=== PATIENT | male | born 1950 | race Caucasian/White ===

== ENCOUNTER → 2020-08-07 | Outpatient (CLI) | payer MEDICARE, OTHER ==
[~2020-08-07] VITALS: Ht 175.3 cm; Wt 93.0 kg
[~2020-08-07] MED LIST: ALLOPURINOL100 MG PO; AMLODIPINE BESY10 MG PO; ASPIR 8181 MG PO; BENADRYL 25MG C25 MG PO; CALCIUM ACETAT667 M1 PO; CARDURA 2MG TAB2 MG PO; CIPROFLOXACIN500 M1 PO; CLINDAMYCIN HC300 MG PO; ELIQUIS5 MG PO; FLOXIN 0.3% OTIC5 ML AS; FUROSEMIDE20 MG PO; GLIPIZIDE5 MG PO; GLUCOTROL 10 MG10 MG PO; HUMALOG 10100 UNITS/ SC; HYDRALAZINE HCL10 MG PO; HYDRALAZINE HCL25 MG PO; ISOSORBIDE MONO60 MG PO; KEFLEX CAP 500500 MG PO; KETOROLAC TROMETHAMI; LANTUS SOL100 UNIT/1 SQ; LEVOTHYROXINE50 MCG PO; LEVOTHYROXINE88 MCG PO; LOPRESSOR 25 MG25 MG PO; PIOGLITAZONE HC15 MG PO; PLAVIX75 MG PO; POVIDONE IODINE TOP; PRAVASTATIN SOD20 MG PO; PRAVASTATIN SOD80 MG PO; PREDNISOLONE ACE5 ML OP; PREDNISONE10 MG PO; PROTONIX 40 MG40 M1 PO; SODIUM BICARBO650 M1 PO
== END ==
LOC: NM 09:55
PROVIDERS: Podiatrist Foot & Ankle Surgery
DX: E11.69 Type 2 diabetes mellitus with other specified complication (principal); M86.172 Other acute osteomyelitis, left ankle and foot; Z91.041 Radiographic dye allergy status; Z79.4 Long term (current) use of insulin; Z79.899 Other long term (current) drug therapy
CPT/HCPCS: 36415; 78315; 80048; 96365; 96366; A9503; J3370; J7060

== ENCOUNTER → 2020-08-15 | Day surgery (SDC) | payer MEDICARE, OTHER | END | disposition home or self-care (01) | LOC: OR 06:56 | DX: E11.69 Type 2 diabetes mellitus with other specified complication (principal); M86.8X7 Other osteomyelitis, ankle and foot; I12.9 Hypertensive chronic kidney disease with stage 1 through stage 4 chronic kidney disease, or unspecified chronic kidney disease; E11.22 Type 2 diabetes mellitus with diabetic chronic kidney disease; N18.9 Chronic kidney disease, unspecified; E11.51 Type 2 diabetes mellitus with diabetic peripheral angiopathy without gangrene; E11.621 Type 2 diabetes mellitus with foot ulcer; L97.519 Non-pressure chronic ulcer of other part of right foot with unspecified severity; I25.10 Atherosclerotic heart disease of native coronary artery without angina pectoris; E78.00 Pure hypercholesterolemia, unspecified; Z87.891 Personal history of nicotine dependence; Z91.041 Radiographic dye allergy status; Z88.8 Allergy status to other drugs, medicaments and biological substances; Z79.82 Long term (current) use of aspirin; Z79.4 Long term (current) use of insulin; Z79.2 Long term (current) use of antibiotics; Z79.02 Long term (current) use of antithrombotics/antiplatelets; Z79.899 Other long term (current) drug therapy | CPT/HCPCS: 71045; 77001; 82962; C1751; C1769; C1788; J0690; J1100; J1642; J2001; J2405; J2704; J3010; J7030; J7040; J7120 ==

== ENCOUNTER 2020-12-09 15:57 | Inpatient (IN) | payer MEDICARE, OTHER ==
[~2020-12-09] VITALS: Ht 175.3 cm; Wt 90.0 kg
[~2020-12-09 15:57] MED LIST changes: -CALCIUM ACETAT667 M1 PO; -ELIQUIS5 MG PO; -GLUCOTROL 10 MG10 MG PO; -HUMALOG 10100 UNITS/ SC; -HYDRALAZINE HCL10 MG PO; -HYDRALAZINE HCL25 MG PO; -ISOSORBIDE MONO60 MG PO; -LEVOTHYROXINE88 MCG PO; -LOPRESSOR 25 MG25 MG PO; -POVIDONE IODINE TOP; -PRAVASTATIN SOD20 MG PO; -PROTONIX 40 MG40 M1 PO; -SODIUM BICARBO650 M1 PO
[2020-12-09 16:57] LABS: RED BLOOD COUNT 3.04 M/UL (4.20-5.50); WHITE BLOOD COUNT 5.7 K/UL (4.5-11.0)
[2020-12-09] MEDS ORDERED: HYDRALAZINE HCL10 MG PO (23:09)
[2020-12-09] MEDS ORDERED: GLUCOTROL 10 MG10 MG PO (23:09)
[2020-12-09] MEDS ORDERED: LEVOTHYROXINE88 MCG PO (23:10)
[2020-12-09] MEDS ORDERED: ELIQUIS5 MG PO (23:11)
[2020-12-10 02:49] LABS: HEMOGLOBIN 9.2 gm/dl (14.0-17.5); RED BLOOD COUNT 3.13 M/UL (4.20-5.50); WHITE BLOOD COUNT 6.7 K/UL (4.5-11.0)
[2020-12-10 03:19] LABS: BUN/CREATININE RATIO 14 (0-10)
[2020-12-12 05:01] LABS: HEMOGLOBIN 10.7 gm/dl (14.0-17.5); WHITE BLOOD COUNT 5.2 K/UL (4.5-11.0)
[2020-12-12 05:05] LABS: RED BLOOD COUNT 3.69 M/UL (4.20-5.50)
--- NOTE | 2020-12-12 08:04 | NUR ---
LAB NOTIFIED NURSE OF CRITICAL POTASSIUM 7.7. HAS BEEN NOTIFIED. SARAH BETH
--- NOTE | 2020-12-12 17:41 | NUR ---
NOTIFIED OF BLOOD GLUCOSE 451 AT 1630. MD ORDER HUMALOG 75/25 50 UNITS AND TO USE THE SLIDING SCALE.
[2020-12-13 02:53] LABS: HEMOGLOBIN 8.6 gm/dl (14.0-17.5); RED BLOOD COUNT 2.99 M/UL (4.20-5.50); WHITE BLOOD COUNT 6.8 K/UL (4.5-11.0)
[2020-12-13 08:15] LABS: COMPLEMENT C3, SERUM 158 mg/dL (82-167); COMPLEMENT C4, SERUM 39 mg/dL (12-38)
--- NOTE | 2020-12-14 12:33 | NUR ---
NOTIFIED MD OF ELEVATED BP 173/66. AWAITING MD ORDERS. WCTM
--- NOTE | 2020-12-14 17:46 | NUR ---
MD NOTIFIED OF SBP >160. MD ORDERED NO NEW MEDS AND TO CONTINUE TO [facility].
[2020-12-16 04:01] LABS: RED BLOOD COUNT 3.7 M/UL (4.20-5.50); WHITE BLOOD COUNT 7.1 K/UL (4.5-11.0)
[2020-12-16 04:02] LABS: HEMOGLOBIN 10.7 gm/dl (14.0-17.5)
[2020-12-18 04:07] LABS: HEMOGLOBIN 9.5 gm/dl (14.0-17.5)
[2020-12-18 04:27] LABS: RED BLOOD COUNT 3.32 M/UL (4.20-5.50)
[2020-12-20 02:56] LABS: HEMOGLOBIN 9.7 gm/dl (14.0-17.5); RED BLOOD COUNT 3.35 M/UL (4.20-5.50); WHITE BLOOD COUNT 6.2 K/UL (4.5-11.0)
--- NOTE | 2020-12-20 15:36 | NUR ---
WOUND CARE PERFORMED PER MD ORDER, PATIENT TOLERATED WELL.
--- NOTE | 2020-12-21 15:50 | NUR ---
wound care performed per md order. patient tolerated well.
[2020-12-22] MEDS ORDERED: HYDRALAZINE HCL25 MG PO (11:50)
[2020-12-22] MEDS ORDERED: PRAVASTATIN SOD20 MG PO (11:50)
[2020-12-22] MEDS ORDERED: POVIDONE IODINE TOP (11:50)
[2020-12-22] MEDS ORDERED: SODIUM BICARBO650 M1 PO (11:50)
[2020-12-22] MEDS ORDERED: LEVOTHYROXINE88 MCG PO (11:50)
[2020-12-22] MEDS ORDERED: LOPRESSOR 25 MG25 MG PO (11:50)
[2020-12-22] MEDS ORDERED: PROTONIX 40 MG40 M1 PO (11:50)
[2020-12-22] MEDS ORDERED: ISOSORBIDE MONO60 MG PO (11:50)
[2020-12-22] MEDS ORDERED: HUMALOG 10100 UNITS/ SC (11:50)
[2020-12-22] MEDS ORDERED: CALCIUM ACETAT667 M1 PO (11:50)
[2020-12-22 12:26] LABS: HEMOGLOBIN 10.1 gm/dl (14.0-17.5); RED BLOOD COUNT 3.52 M/UL (4.20-5.50); WHITE BLOOD COUNT 5.9 K/UL (4.5-11.0)
[2020-12-23 04:38] LABS: HEMOGLOBIN 9.5 gm/dl (14.0-17.5); RED BLOOD COUNT 3.37 M/UL (4.20-5.50); WHITE BLOOD COUNT 5.6 K/UL (4.5-11.0)
[2020-12-24 06:11] LABS: HEMOGLOBIN 9.7 gm/dl (14.0-17.5); RED BLOOD COUNT 3.4 M/UL (4.20-5.50)
--- NOTE | 2020-12-29 17:39 | NUR ---
patients sugar was 65 at 1650, i offered the patient juice or a snack and he refused, i told him his sugar was low and needed medication D50 to bring it back up, he refused all treatment. at 1740 patient agreed to drink a juice, wctm
[2020-12-30 05:10] LABS: HEMOGLOBIN 8.2 gm/dl (14.0-17.5); RED BLOOD COUNT 2.96 M/UL (4.20-5.50); WHITE BLOOD COUNT 4.4 K/UL (4.5-11.0)
[2021-01-03 04:15] LABS: HEMOGLOBIN 7.8 gm/dl (14.0-17.5); RED BLOOD COUNT 2.77 M/UL (4.20-5.50); WHITE BLOOD COUNT 5.3 K/UL (4.5-11.0)
[2021-01-04 03:22] LABS: HEMOGLOBIN 8.6 gm/dl (14.0-17.5); RED BLOOD COUNT 3.02 M/UL (4.20-5.50); WHITE BLOOD COUNT 9.4 K/UL (4.5-11.0)
--- NOTE | 2021-01-04 04:56 | NUR ---
01/04/2021 @ 02:20 - Patient O2 65%, bp 96/52, unable to obtain oral temp. rectally 95.7. Bowel movement and void in bed, blood sugar 239. Applied o2 @ 2L, O2 increased to mid 80's. Titrated O2 to 5L, no change in O2 sat. Dr Ray notified, obtained order for stat cbc, cmp, ekg, cardiacs (repeat in 3 hours), chest xray, ABG, blood cultures x2, vancomycin pharmacy to dose, and lactic acid. Pt difficult to arouse. 01/04/2021 @ 03:30 - respiratory therapy in room. venti mask applied at 50%. o2 sat staying above 90% at this time. MD called RN for eliquis 5mg x1 dose now and BID. and lasix 40mg if systolic bp >100 or lasix 60mg if systolic >120. bp currently 97/50. MD notified of lab values and bp. obtained order for pcu tx, 15 kayexalate, 10 units IV insulin, 1 amp of d50, NS 500 bolus, and 1g calcium gluconate. Also to repeat lactic and potassium labs in 4 hours.
--- NOTE | 2021-01-04 05:08 | NUR ---
01/04/2021 @ 04:55 - Report called to Nasim SOTO on PCU.
--- NOTE | 2021-01-04 05:08 | NUR ---
01/04/2021 @ 05:05 - pt moved to [facility]
--- NOTE | 2021-01-04 15:44 | NUR ---
01/04/21 1130 PATIENT O2 SATURATION 88% ON 15L HFNC AND UNABLE TO MAINTAIN SATURATION. DR. SY NOTIFIED AND ORDERS WERE RECEIVED TO OBTAIN ABG.
--- NOTE | 2021-01-04 15:45 | NUR ---
01/04/21 1434 NOTIFIED THAT PATIENT O2 SATURATION 85% ON 100% AIRVO, ORDERS OBTAINED TO PLACE PATIENT ON BIPAP
--- NOTE | 2021-01-05 00:27 | NUR ---
1999 ATTEMPTED TO TRY PATIENT BACK ON HIS HIGH FLOW O2 THIS FAILED HE QUICKLY DROPS HIS SAT. 2099 TRIED PATIENT ON THE AIRVO TO SEE IF HE COULD TOLORATE SO HE COULD EAT FAILD HE DROPS INTO LOW 80'S. HE IS PLACED BACK ON THE BIPAP 0000 ON BIPAP HE CONTINUES TO DROP TO MID 80'S MD IS CALLED AND NEW BIPAP SETTING ARE GIVEN. IMMEDIATELY PATEINTS SATS ELEVATE TO 90'S
--- NOTE | 2021-01-05 01:31 | NUR ---
0130 patient has removed is mask severl times this shift, sats quickly drop into 70's at this time his sat in mid 80's aware
[2021-01-05 03:45] LABS: HEMOGLOBIN 7.7 gm/dl (14.0-17.5); RED BLOOD COUNT 2.72 M/UL (4.20-5.50); WHITE BLOOD COUNT 8.6 K/UL (4.5-11.0)
--- NOTE | 2021-01-05 04:51 | NUR ---
FAMILY IS CALLED TO INFORM THEM OF CHANGES IN PATIENTS CONDITION. [id number] FAMILY AT BEDSIDE
== END 2021-01-05 08:00 | disposition expired | DRG 239 ==
LOC: ER1 15:57 → MED SURG 4 22:13 → CDU 22:13 → MED SURG 4 12-10 00:45 → ZEROF 12-17 14:59 → PROG CARE 01-04 05:08
PROVIDERS: Internal Medicine; Internal Medicine Infectious Disease; Internal Medicine Nephrology; Physician Assistant; ADMIT Internal Medicine
PROC: 0Y6M0ZF Detachment at Right Foot, Partial 5th Ray, Open Approach (ICD-10-PCS; principal; 2020-12-09)
PROC: 0Y6X0Z0 Detachment at Right 5th Toe, Complete, Open Approach (ICD-10-PCS; principal; 2020-12-09)
PROC: 0JBP0ZZ Excision of Left Lower Leg Subcutaneous Tissue and Fascia, Open Approach (ICD-10-PCS; 2020-12-09)
PROC: 0HRMXK3 Replacement of Right Foot Skin with Nonautologous Tissue Substitute, Full Thickness, External Approach (ICD-10-PCS; 2020-12-09)
PROC: 5A09457 Assistance with Respiratory Ventilation, 24-96 Consecutive Hours, Continuous Positive Airway Pressure (ICD-10-PCS; 2020-12-09)
PROC: 3E033XZ Introduction of Vasopressor into Peripheral Vein, Percutaneous Approach (ICD-10-PCS; 2021-01-03)
PROC: B24BZZZ Ultrasonography of Heart with Aorta (ICD-10-PCS; 2021-01-04)
DX: E11.52 Type 2 diabetes mellitus with diabetic peripheral angiopathy with gangrene (principal); J18.9 Pneumonia, unspecified organism; N17.0 Acute kidney failure with tubular necrosis; A41.52 Sepsis due to Pseudomonas; A41.81 Sepsis due to Enterococcus; M86.8X7 Other osteomyelitis, ankle and foot; L03.115 Cellulitis of right lower limb; N18.4 Chronic kidney disease, stage 4 (severe); E87.2 Acidosis; E87.1 Hypo-osmolality and hyponatremia; I13.0 Hypertensive heart and chronic kidney disease with heart failure and stage 1 through stage 4 chronic kidney disease, or unspecified chronic kidney disease; R57.8 Other shock; Z20.822 Contact with and (suspected) exposure to COVID-19; E11.69 Type 2 diabetes mellitus with other specified complication; E11.628 Type 2 diabetes mellitus with other skin complications; E11.40 Type 2 diabetes mellitus with diabetic neuropathy, unspecified; E11.22 Type 2 diabetes mellitus with diabetic chronic kidney disease; I25.10 Atherosclerotic heart disease of native coronary artery without angina pectoris; D69.6 Thrombocytopenia, unspecified; E03.9 Hypothyroidism, unspecified; I82.4Z1 Acute embolism and thrombosis of unspecified deep veins of right distal lower extremity; D50.9 Iron deficiency anemia, unspecified; D69.59 Other secondary thrombocytopenia; T36.95XA Adverse effect of unspecified systemic antibiotic, initial encounter; I08.3 Combined rheumatic disorders of mitral, aortic and tricuspid valves; D63.1 Anemia in chronic kidney disease; E87.6 Hypokalemia; R26.9 Unspecified abnormalities of gait and mobility; E11.649 Type 2 diabetes mellitus with hypoglycemia without coma; M10.9 Gout, unspecified; E11.621 Type 2 diabetes mellitus with foot ulcer; I87.8 Other specified disorders of veins; Z82.49 Family history of ischemic heart disease and other diseases of the circulatory system; Z95.1 Presence of aortocoronary bypass graft; Z79.4 Long term (current) use of insulin; Z83.3 Family history of diabetes mellitus; Z98.890 Other specified postprocedural states; Z86.718 Personal history of other venous thrombosis and embolism; Z79.01 Long term (current) use of anticoagulants
CPT/HCPCS: ECHO; 36415; 36600; 71045; 73630; 73718; 80048; 80053; 80061; 80069; 80202; 82550; 82553; 82570; 82607; 82728; 82746; 82803; 82962; 83036; 83540; 83550; 83605; 83735; 83880; 84100; 84132; 84156; 84439; 84443; 84484; 85025; 85027; 85652; 86140; 86160; 87040; 87070; 87077; 87186; 87205; 93005; 93306; 93926; 93971; 94640; 94660; 96374; 97161; 97166; 99285; G0378 ×2; J0610; J0692; J0713; J1100; J1335; J1610; J1756; J1940; J2001; J2020; J2185; J2270; J2405; J2543; J2704; J2795; J3010; J3370; J7030; J7040; J7070; J7120; Q4133; U0002